=== PATIENT | female | born 1995 | race Caucasian/White ===

== ENCOUNTER 2020-04-20 21:04 | Emergency (ER) | payer OTHER ==
[~2020-04-20] VITALS: Ht 172.7 cm; Wt 138.3 kg
[2020-04-20] MEDS ORDERED: LOVENOX150 MG SUB-Q (21:22)
[2020-04-20] MEDS ORDERED: LAMICTAL25 MG PO (21:23)
[2020-04-20] MEDS ORDERED: PRENATAL FORMU1 EAC3 PO (21:23)
== END 2020-04-20 23:19 | disposition home or self-care (01) ==
LOC: ED 21:04
DX: R60.0 Localized edema (principal); F31.9 Bipolar disorder, unspecified; F41.9 Anxiety disorder, unspecified; F43.10 Post-traumatic stress disorder, unspecified; F17.200 Nicotine dependence, unspecified, uncomplicated; Z79.899 Other long term (current) drug therapy; Z88.8 Allergy status to other drugs, medicaments and biological substances
CPT/HCPCS: 71260; 80053; 85025; 85610; 85730; 93970; 99284-25

== ENCOUNTER 2020-05-17 21:28 | Emergency (ER) | payer OTHER ==
[~2020-05-17] VITALS: Ht 172.7 cm; Wt 138.3 kg
[~2020-05-17 21:28] MED LIST: LAMICTAL25 MG PO; LOVENOX150 MG SUB-Q; PRENATAL FORMU1 EAC3 PO
--- OUTSIDE RECORDS SUMMARY | 2020-05-17 21:30 | XMS ---
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 E.D. VISIT COUNT (12 MO.) 8 [facility] 2 [facility] Sera [place] [address] [place] TOTAL 23 NOTE: Visits indicate total known visits. ED/UCC VISIT TRACKING (12 MO.) 05/17/2020 21:29 [facility] TYPE: Emergency COMPLAINT: - RIGHT ARM WEAKNESS 04/20/2020 21:05 [facility] TYPE: Emergency COMPLAINT: - LEG PAIN/SOB DIAGNOSES: - Post-traumatic stress disorder, unspecified - Allergy status to other drugs, medicaments and biological substances - Pain in right leg - Localized edema - Other chcf (current) drug therapy - Nicotine dependence, unspecified, uncomplicated - Anxiety disorder, unspecified - Bipolar disorder, unspecified - Pain in left leg 02/13/2020 23:07 [facility] TYPE: Emergency DIAGNOSES: 0. SHORTNESS OF BREATH 02/10/2020 23:18 [facility] TYPE: Emergency DIAGNOSES: 0. HEADACHE 02/06/2020 22:43 [facility] TYPE: Emergency DIAGNOSES: 0. HEADACHE 02/05/2020 23:16 [facility] TYPE: Emergency DIAGNOSES: 0. HEADACHE INTO NECK28 WEEKS 02/02/2020 22:08 [facility] TYPE: Emergency DIAGNOSES: 0. NAUSEA VOMITING 01/30/2020 22:37 [facility] TYPE: Emergency DIAGNOSES: 0. 27 WEEKS SOB HEAD PAIN ABD PAIN 01/24/2020 22:01 [facility] TYPE: Emergency DIAGNOSES: 0. SOB 01/21/2020 21:12 [facility] TYPE: Emergency DIAGNOSES: 0. CHEST PAIN 01/11/2020 02:30 [facility] TYPE: Emergency DIAGNOSES: - Chest pain, unspecified - Bronchitis, not specified as acute or chronic - Chest pain/ SOB - Chest Pain 12/03/2019 15:11 [facility] TYPE: Emergency DIAGNOSES: - Vomiting of , unspecified - Complication - Dizziness Vomiting 11/20/2019 22:29 [facility] [employer] [place] TYPE: Emergency DIAGNOSES: - Dental Pain - Mouth bleed - Postprocedural hemorrhage of a digestive system organ or structure following a digestive system procedure 11/15/2019 22:47 [facility] [employer] [facility] TYPE: Emergency DIAGNOSES: - Contusion of lower back and pelvis, initial encounter - Encounter for issue of repeat prescription - Possible Abscess - Cellulitis - Other injury of unspecified body region, initial encounter 08/29/2019 22:38 [facility] [employer] [place] TYPE: Emergency DIAGNOSES: - Sprain of unspecified ligament of left ankle, initial encounter - Foot Injury 08/25/2019 11:29 [facility] Baez-Brandy [facility] TYPE: Emergency DIAGNOSES: 0. COUGH AND VOMITING 07/24/2019 17:19 [facility] TYPE: Emergency DIAGNOSES: 0. VAGINAL BLEEDING 07/21/2019 20:08 [facility] TYPE: Emergency DIAGNOSES: - Unspecified asthma with (acute) exacerbation - Acute vaginitis - Candidiasis of skin and nail - Cough - Other specified bacterial agents as the cause of diseases classified elsewhere 07/10/2019 15:27 [facility] TYPE: Emergency DIAGNOSES: - Dyspnea, unspecified - sob - Shortness of Breath - Acute embolism and thrombosis of unspecified deep veins of left lower extremity 07/09/2019 [facility] DIAGNOSES: - Pain, unspecified - Acute embolism and thrombosis of unspecified deep veins of left lower extremity - Leg Swelling - Leg Pain Plus 3 More Visits INPATIENT VISIT TRACKING (12 MO.) 04/06/2020 07:50 [facility] TYPE: Gynecology DIAGNOSES: 0. LABOR AND DELIVERY 01/27/2020 23:20 [facility] [place] [facility] TYPE: Obstetrics DIAGNOSES: - Contractions 01/25/2020 22:00 [facility] [place] [facility] TYPE: Obstetrics 01/11/2020 00:18 [facility] [place] [facility] TYPE: Obstetrics [email or web address]
[2020-05-17] MEDS ORDERED: BUSPIRONE HCL5 MG PO (21:43)
[2020-05-17] MEDS ORDERED: VRAYLAR4.5 MG PO (21:43)
== END 2020-05-17 23:50 | disposition home or self-care (01) ==
LOC: ED 21:28
DX: M79.621 Pain in right upper arm (principal); R07.89 Other chest pain; F31.9 Bipolar disorder, unspecified; F41.9 Anxiety disorder, unspecified; F43.10 Post-traumatic stress disorder, unspecified; F17.200 Nicotine dependence, unspecified, uncomplicated; Z88.8 Allergy status to other drugs, medicaments and biological substances; Z79.899 Other long term (current) drug therapy
CPT/HCPCS: 71260; 80053; 81001; 84703; 85025; 93971; 96372; 99285-25; J1650; Q9967

== ENCOUNTER 2020-05-20 13:20 | Emergency (ER) | payer OTHER ==
[~2020-05-20] VITALS: Ht 172.7 cm; Wt 138.3 kg
[~2020-05-20 13:20] MED LIST changes: +BUSPIRONE HCL5 MG PO; +VRAYLAR4.5 MG PO
--- OUTSIDE RECORDS SUMMARY | 2020-05-20 13:22 | XMS ---
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 E.D. VISIT COUNT (12 MO.) 8 [facility] 2 [facility] Sera [place]air[place] [address] [place] TOTAL 24 NOTE: Visits indicate total known visits. 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 TYPE: Emergency DIAGNOSES: 0. SHORTNESS OF BREATH 02/10/2020 23:18 [facility] TYPE: Emergency DIAGNOSES: 0. HEADACHE 02/06/2020 22:43 [facility] TYPE: Emergency DIAGNOSES: 0. HEADACHE 02/05/2020 23:16 [facility] TYPE: Emergency DIAGNOSES: 0. HEADACHE INTO [id number] WEEKS 02/02/2020 22:08 [facility] TYPE: Emergency DIAGNOSES: 0. NAUSEA VOMITING 01/30/2020 22:37 [facility] TYPE: Emergency DIAGNOSES: 0. 27 WEEKS SOB HEAD PAIN ABD PAIN 01/24/2020 22:01 [facility] TYPE: Emergency DIAGNOSES: 0. SOB 01/21/2020 21:12 [facility] TYPE: Emergency DIAGNOSES: 0. CHEST PAIN 01/11/2020 02:30 [facility] [employer] [place] TYPE: Emergency DIAGNOSES: - Chest pain, unspecified - Bronchitis, not specified as acute or chronic - Chest pain/ SOB - Chest Pain 12/03/2019 15:11 [facility] [employer] [place] TYPE: Emergency DIAGNOSES: - Vomiting of , unspecified - Complication - Dizziness Vomiting 11/20/2019 22:29 [facility] [employer] [place] TYPE: Emergency DIAGNOSES: - Dental Pain - Mouth bleed - Postprocedural hemorrhage of a digestive system organ or structure following a digestive system procedure 11/15/2019 22:47 [facility] [employer] [place] TYPE: Emergency DIAGNOSES: - Contusion of lower back and pelvis, initial encounter - Encounter for issue of repeat prescription - Possible Abscess - Cellulitis - Other injury of unspecified body region, initial encounter 08/29/2019 22:38 [facility] TYPE: Emergency DIAGNOSES: - Sprain of unspecified ligament of left ankle, initial encounter - Foot Injury 08/25/2019 11:29 [facility] TYPE: Emergency DIAGNOSES: 0. COUGH AND VOMITING 07/24/2019 17:19 [facility]: Emergency DIAGNOSES: 0. VAGINAL BLEEDING 07/21/2019 20:08 [facility] TYPE: Emergency DIAGNOSES: - Unspecified asthma with (acute) exacerbation - Acute vaginitis - Candidiasis of skin and nail - Cough - Other specified bacterial agents as the cause of diseases classified elsewhere 07/10/2019 15:27 [facility] [place] [facility] TYPE: Emergency DIAGNOSES: - Dyspnea, unspecified - sob - Shortness of Breath - Acute embolism and thrombosis of unspecified deep veins of left lower extremity Plus 4 More Visits INPATIENT VISIT TRACKING (12 MO.) 04/06/2020 07:50 [facility] TYPE: Gynecology DIAGNOSES: 0. LABOR AND DELIVERY 01/27/2020 23:20 [facility] [place] [facility] TYPE: Obstetrics DIAGNOSES: - Contractions 01/25/2020 22:00 [facility] [place] [facility] TYPE: Obstetrics 01/11/2020 00:18 [facility] [place] [facility] TYPE: Obstetrics [email or web address]
[2020-05-20] MEDS ORDERED: XARELTO15 MG PO (15:08)
== END 2020-05-20 15:21 | disposition home or self-care (01) ==
LOC: ED 13:20
DX: D68.59 Other primary thrombophilia (principal); B99.9 Unspecified infectious disease; F41.9 Anxiety disorder, unspecified; F31.9 Bipolar disorder, unspecified; F43.10 Post-traumatic stress disorder, unspecified; F17.200 Nicotine dependence, unspecified, uncomplicated; Z79.899 Other long term (current) drug therapy
CPT/HCPCS: 99283